=== PATIENT | female | born 1950 | race Caucasian/White ===

== ENCOUNTER → 2021-09-11 | Outpatient (CLI) | payer MEDICARE ==
--- NOTE | 2021-09-11 17:38 | KCIC ---
EXAMINATION: MRI PELVIS WITHOUT IV CONTRAST AND MRI BILATERAL HIPS WITHOUT IV CONTRAST CLINICAL HISTORY: Osteoarthritis bilateral hips. History of left hip pain since a fall last February. TECHNIQUE: Multiplanar multisequential images obtained through the pelvis without intravenous contrast. Multiplanar multisequential images obtained through the bilateral hips without IV contrast. COMPARISON: Left hip radiographs 08/01/2021 FINDINGS: Right Hip: No labral tear. No full-thickness chondral defect. No acute fracture. No avascular necrosi s. No joint effusion. No synovitis. Left Hip: Small superior labral tear. No full-thickness chondral defect. No acute fracture. No avascu lar necrosis. No joint effusion. No synovitis. Sacroiliac Joints: Within normal limits. Pubic Symphysis: Within normal limits. Tendons: Tendinosis bilateral hamstring origins, moderate on the left and mild on the right. Mild glu teal insertional tendinosis bilaterally. Tendons otherwise within normal limits including the iliopso as and rectus femoris tendons. Muscles: Edema in the bilateral quadratus femoris muscles, moderate on the left and mild on the right . No evidence of significant narrowing of the ischiofemoral or quadratus femoris spaces, possibly und erestimated due to patient positioning. Muscles otherwise within normal limits for patient's age. Bone Marrow: No acute fracture or suspicious marrow replacing process. Other: Partially visualized lumbar degenerative changes. IMPRESSION: Small left superior acetabular labrum tear. Edema in the left greater than right rectus femoris muscles as described, nonspecific but can be seen with ischiofemoral impingement. Tendinosis bilateral hamstring origins, greater on the left. Electronically signed by: Rangel Recio DO (09/11/2021 5:36 PM) [id number]
== END ==
LOC: KCIC MRI 12:36
PROVIDERS: ATTEND Orthopaedic Surgery Sports Medicine
DX: S43.432A Superior glenoid labrum lesion of left shoulder, initial encounter (principal); M16.0 Bilateral primary osteoarthritis of hip; X58.XXXA Exposure to other specified factors, initial encounter; Y93.89 Activity, other specified; Y92.89 Other specified places as the place of occurrence of the external cause; Y99.8 Other external cause status
CPT/HCPCS: 72195; 73721-50